=== PATIENT | female | born 1960 | race Caucasian/White ===

== ENCOUNTER 2019-04-20 08:33 | Emergency (ER) | payer OTHER ==
[~2019-04-20] VITALS: Ht 165.1 cm; Wt 74.8 kg
[2019-04-20 08:57] VITALS: BP 123/101
[2019-04-20 09:34] LABS: APPEARANCE,URINE Cloudy (CLEAR); BILIRUBIN,URINE Negative (NEGATIVE); BLOOD, URINE Moderate Ery/uL (NEGATIVE); COLOR,URINE Yellow (YELLOW); KETONES,URINE Negative (NEGATIVE); LEUKOCYTE ESTERASE ,URINE Moderate (NEGATIVE); NITRITE, URINE Positive (NEGATIVE); PROTEIN,URINE 100 mg/dl (NEGATIVE); UGLUCOSE Negative (NEGATIVE); UROBILINOGEN,URINE 0.2 EU/dL (0.2)
[2019-04-20 09:48] LABS: BACTERIA,URINE Many /HPF (None Seen); SQUAMOUS EPITHELIAL CELL,UR Few /HPF (None Seen); WBC,URINE 51-80 /HPF (0-3)
[2019-04-20] MEDS ORDERED: LIDOCAINE /MPF 1% VIAL 5 ML VIAL ONE (10:44)
[2019-04-20] MEDS ORDERED: CEFTRIAXONE 500 MG VIAL ONE (10:44)
--- NOTE | 2019-04-20 10:53 | NUR ---
Patient discharged to home in stable condition. Written and verbal after care instructions given. Patient verbalizes understanding of instruction.
[2019-04-20] MEDS ORDERED: CEFTRIAXONE 500 MG VIAL IM ONE (11:00)
== END 2019-04-20 10:55 | disposition home or self-care (01) ==
LOC: ER 08:33
DX: N39.0 Urinary tract infection, site not specified (principal); J45.909 Unspecified asthma, uncomplicated
CPT/HCPCS: 81001; 87077; 87086; 87186; 96372; 99283; J0696; J3490; 81000-TC

== ENCOUNTER 2020-11-23 23:06 | Emergency (ER) | payer OTHER, BC ==
[~2020-11-23] VITALS: Ht 165.1 cm; Wt 81.6 kg
[2020-11-23 23:10] VITALS: BP 112/71
[2020-11-23] MEDS ORDERED: CEFU500T66 PO (23:42)
[2020-11-23 23:56] LABS: BILIRUBIN,URINE NEGATIVE (NEGATIVE); COLOR,URINE YELLOW (YELLOW); LEUKOCYTE ESTERASE ,URINE LARGE (NEGATIVE); NITRITE, URINE NEGATIVE (NEGATIVE); PROTEIN,URINE NEGATIVE (NEGATIVE); UGLUCOSE NEGATIVE (NEGATIVE); UROBILINOGEN,URINE 0.2 EU/dL (0.2)
[2020-11-23] MEDS ORDERED: CEFTRIAXONE 1 G VIAL ONE (23:57)
[2020-11-23] MEDS ORDERED: PHENAZOPYRIDINE HCL 200 MG TABLET ONE (23:57)
[2020-11-23] MEDS ORDERED: LIDOCAINE /MPF 1% VIAL 5 ML VIAL ONE (23:58)
[2020-11-24] MEDS ORDERED: CEFTRIAXONE 1 G VIAL IM ONE
[2020-11-24] MEDS ORDERED: PHENAZOPYRIDINE HCL 200 MG TABLET PO ONE
[2020-11-24 00:11] LABS: BACTERIA,URINE Many /HPF (None Seen); WBC,URINE TOO NUMEROUS TO COUN /HPF (0-3)
[2020-11-24 00:25] LABS: SQUAMOUS EPITHELIAL CELL,UR Few /HPF (None Seen)
[2020-11-24] MEDS ORDERED: PHEN-705 PO (00:29)
--- NOTE | 2020-11-24 00:49 | NUR ---
Patient discharged to home in stable condition. Written and verbal after care instructions given. Patient verbalizes understanding of instruction.
--- NOTE | 2020-11-24 00:50 | NUR ---
patient states that she will see Urologist in the morning 11/24/20
== END 2020-11-24 00:50 | disposition home or self-care (01) ==
LOC: ER 23:11
DX: N39.0 Urinary tract infection, site not specified (principal); J45.909 Unspecified asthma, uncomplicated
CPT/HCPCS: 81001; 96372; 99283; J0696; J3490; 87086-TC

== ENCOUNTER 2020-12-27 21:58 | Emergency (ER) | payer OTHER, BC ==
[~2020-12-27] VITALS: Ht 165.1 cm; Wt 86.2 kg
[~2020-12-27 21:58] MED LIST: CEFU500T66 PO; PHEN-705 PO
[2020-12-27 22:00] VITALS: BP 109/63
[2020-12-27 22:56] LABS: BILIRUBIN,URINE NEGATIVE (NEGATIVE); COLOR,URINE YELLOW (YELLOW); LEUKOCYTE ESTERASE ,URINE MODERATE (NEGATIVE); NITRITE, URINE NEGATIVE (NEGATIVE); PROTEIN,URINE NEGATIVE (NEGATIVE); UGLUCOSE NEGATIVE (NEGATIVE); UROBILINOGEN,URINE 0.2 EU/dL (0.2)
[2020-12-27 23:04] LABS: BACTERIA,URINE 2+ /HPF (None Seen); MUCUS,URINE Few /LPF (None Seen); SQUAMOUS EPITHELIAL CELL,UR Few /HPF (None Seen); URINE AMORPHOUS URATE Moderate /HPF (None Seen); WBC,URINE TOO NUMEROUS TO COUN /HPF (0-3)
[2020-12-27] MEDS ORDERED: NITR100C PO (23:40)
[2020-12-27] MEDS ORDERED: NITROFURANTOIN/NITROFURAN MONOHYDRATE 100 MG CAPSULE ONE (23:43)
[2020-12-28] MEDS ORDERED: NITROFURANTOIN/NITROFURAN MONOHYDRATE 100 MG CAPSULE PO ONE
== END 2020-12-27 23:49 | disposition home or self-care (01) ==
LOC: ER 21:59
DX: N39.0 Urinary tract infection, site not specified (principal); I10 Essential (primary) hypertension; J45.909 Unspecified asthma, uncomplicated; Z79.899 Other long term (current) drug therapy
CPT/HCPCS: 81001; 87086-TC; 87186-TC